=== PATIENT | female | born 1980 | race Two or more races ===

== ENCOUNTER → 2016-06-17 | Outpatient (REF) | payer OTHER ==
[2016-06-17 14:04] LABS: ALBUMIN 3.1 GM/DL (3.2-5.2); ALBUMIN/GLOBULIN RATIO 0.86 (1.00-1.93); ALKALINE PHOSPHATASE 58 U/L (45-117); ALT/SGPT 17 U/L (12-78); ANION GAP 9 MEQ/L (8-16); AST/SGOT 16 U/L (15-37); BILIRUBIN,TOTAL 0.1 MG/DL (0.2-1.0); BLOOD UREA NITROGEN 7 MG/DL (7-18); CARBON DIOXIDE LEVEL 28 MEQ/L (21-32); CHLORIDE LEVEL 103 MEQ/L (98-107); CREATININE FOR GFR 0.47 MG/DL (0.55-1.02); GLOMERULAR FILTRATION RATE > 60.0 (>60); GLUCOSE, FASTING 65 MG/DL (70-105); POTASSIUM SERUM 4.1 MEQ/L (3.5-5.1); SODIUM LEVEL 140 MEQ/L (136-145); TOTAL PROTEIN 6.7 GM/DL (6.4-8.2)
== END ==
LOC: M SFHCPLAZ 11:07
PROVIDERS: ATTEND Internal Medicine Infectious Disease
DX: Z36 Encounter for antenatal screening of mother (principal); Z3A.14 14 weeks gestation of pregnancy

== ENCOUNTER → 2016-07-30 | Outpatient (REF) | payer OTHER ==
[2016-07-30 14:04] LABS: ALBUMIN/GLOBULIN RATIO 0.88 (1.00-1.93); ALKALINE PHOSPHATASE 65 U/L (45-117); ALT/SGPT 20 U/L (12-78); AST/SGOT 14 U/L (15-37); BILIRUBIN,DIRECT < 0.1 MG/DL (0.0-0.2); BILIRUBIN,TOTAL 0.1 MG/DL (0.2-1.0); TOTAL PROTEIN 6.4 GM/DL (6.4-8.2)
== END ==
LOC: M SFHCPLAZ 10:32
PROVIDERS: ATTEND Internal Medicine Infectious Disease
DX: B18.1 Chronic viral hepatitis B without delta-agent (principal)

== ENCOUNTER 2016-12-13 16:21 | Inpatient (IN) | payer OTHER ==
[~2016-12-13] VITALS: Ht 154.9 cm; Wt 59.2 kg
[2016-12-13] VITALS (39 sets, daily range): BP systolic 79–145; BP diastolic 45–88
[2016-12-13] MEDS ORDERED: PRENTAB9 PO (16:56)
[2016-12-13] MEDS ORDERED: OXYTOCIN DRIP 30 UNITS in APPROPRIATE DILUENT 1 EA IV SCH (17:15)
[2016-12-13] MEDS ORDERED: LR 1,000 ML IV SCH (17:30)
[2016-12-13 17:42] LABS: BASO % 0.2 % (0.0-1.0); EOS # 0.3 10^3/uL (0.0-0.50); EOS % 2.4 % (0.0-3.0); IMMATURE GRANULOCYTE % 0.6 % (0-0); LYMPH # 1.8 10^3/uL (1.5-4.5); LYMPH % 14.5 % (24.0-44.0); MEAN CORPUSCULAR HEMOGLOBIN 30.4 pg (27.0-33.0); MEAN CORPUSCULAR HGB CONC 34.6 g/dl (32.0-36.5); MEAN CORPUSCULAR VOLUME 87.9 fl (80.0-96.0); MONO # 0.9 10^3/uL (0.0-0.8); MONO % 7.2 % (0.0-5.0); NEUTROPHILS # 9.6 10^3/uL (1.8-7.7); NEUTROPHILS % 75.1 % (36.0-66.0); PLATELET COUNT, AUTOMATED 260 10^3/uL (150-450); WHITE BLOOD COUNT 12.7 10^3/uL (4.0-10.0)
[2016-12-13] MEDS ORDERED: FENTANYL 2MCG/ML ROPIVACAINE 0.2% IN 0.9% NACL 200ML IVBAG As Ordered ONE (21:26)
[2016-12-13] MEDS ORDERED: diphenhydrAMINE INJ 50MG/ML VIAL (J1200) IV PRN (23:15)
[2016-12-13] MEDS ORDERED: ePHEDrine SULFATE 25 MG/5 ML(5MG/ML) SYRINGE IV PRN (23:15)
[2016-12-13] MEDS ORDERED: ONDANSETRON 4MG/2ML VIAL (J2405) IV PRN (23:15)
[2016-12-13] MEDS ORDERED: FENTANYL/ROPIVACAINE/NACL BAG 200 ML EPIDURAL SCH (23:15)
[2016-12-13] MEDS ORDERED: NALOXONE INJ 0.4 MG/1 ML VIAL (J2310) IV PRN (23:15)
[2016-12-13] MEDS ORDERED: REFRIGERATOR IV KEYS XX PRN (23:15)
[2016-12-13] MEDS ORDERED: EPIDURAL/PCA KEYS XX PRN (23:15)
[2016-12-13] MEDS ORDERED: EPIDURAL COMMENT XX SCH (23:15)
[2016-12-13] MEDS ORDERED: LACTATED RINGER'S 1000 ML IV PRN (23:15)
[2016-12-14] VITALS (11 sets, daily range): BP systolic 98–133; BP diastolic 53–71
[2016-12-14] MEDS ORDERED: OXYTOCIN DRIP 30 UNITS in APPROPRIATE DILUENT 1 EA IV SCH (03:11)
[2016-12-14] MEDS ORDERED: METHYLERGONOVINE MALEATE 0.2 MG TAB PO PRN (03:15)
[2016-12-14] MEDS ORDERED: ACETAMINOPHEN TAB 650MG DOSE (2X325MG) PO PRN (03:15)
[2016-12-14] MEDS ORDERED: ONDANSETRON 4MG/2ML VIAL (J2405) IV PRN (03:15)
[2016-12-14] MEDS ORDERED: IBUPROFEN 600 MG TAB PO PRN (03:15)
[2016-12-14] MEDS ORDERED: MEASLES,MUMPS,RUBELLA VACCINE INJ (MMR-II) (90707) SC SCH (03:15)
[2016-12-14] MEDS ORDERED: DOCUSATE SODIUM 100 MG CAP PO PRN (03:15)
[2016-12-14] MEDS ORDERED: DIBUCAINE 1% OINTMENT 30GM TOP PRN (03:15)
[2016-12-14] MEDS: PRENATAL VITAMINS CHEWABLE TABLET PO SCH (07:34)
[2016-12-15 05:48] VITALS: BP 121/72
[2016-12-15 07:06] LABS: MEAN CORPUSCULAR HEMOGLOBIN 30.3 pg (27.0-33.0); MEAN CORPUSCULAR HGB CONC 33.9 g/dl (32.0-36.5); MEAN CORPUSCULAR VOLUME 89.3 fl (80.0-96.0); PLATELET COUNT, AUTOMATED 199 10^3/uL (150-450); RED CELL DISTRIBUTION WIDTH 13.2 % (11.5-14.5)
[2016-12-15] MEDS: PRENATAL VITAMINS CHEWABLE TABLET PO SCH (07:46)
[2016-12-15] MEDS ORDERED: ACET50TA PO (08:24)
[2016-12-15] MEDS ORDERED: IBUP-1114 PO (08:24)
[2016-12-15] MEDS ORDERED: INFLUENZA QUADRIVALENT PF VACCINE 0.5ML SYRINGE (90686) IM ONE ×2 (09:00→13:00)
--- NOTE | 2016-12-15 21:31 | IPN ---
DATE: 12/15/2016 This lady requested circumcision of her male . After discussing risks and benefits of circumcision, the medical and nonmedical indications, penile block and aftercare, signed and witnessed the consent form and we await the clearance by the cistern room working supervisor. All questions were answered.
== END 2016-12-15 12:30 | disposition home or self-care (01) | DRG 775 ==
LOC: M LDO 16:21 → M LDI 17:11 → M OBS 12-14 05:34
PROVIDERS: ADMIT Obstetrics & Gynecology; ATTEND Obstetrics & Gynecology
PROC: 10E0XZZ Delivery of Products of Conception, External Approach (ICD-10-PCS; principal; 2016-12-14)
DX: O42.02 Full-term premature rupture of membranes, onset of labor within 24 hours of rupture (principal); Z3A.39 39 weeks gestation of pregnancy; O76 Abnormality in fetal heart rate and rhythm complicating labor and delivery; O69.1XX0 Labor and delivery complicated by cord around neck, with compression, not applicable or unspecified; Z37.0 Single live birth